=== PATIENT | female | born 1985 | race Caucasian/White ===

== ENCOUNTER → 2017-08-23 11:54 | Day surgery (SDC) | payer OTHER, SELFPAY ==
[2017-08-23] VITALS (11 sets, daily range): BP systolic 89–115; BP diastolic 48–79; PULSE 65–96; RESP 12–16; TEMP 36.5–37.3; O2SAT 99–100; BMI 27.8
--- NOTE | 2017-08-23 | PATH_ITS ---
[facility] Accession Number: [id number] . 01 Material submitted: . GALLBLADDER . 02 Diagnosis: Gallbladder, Cholecystectomy: Chronic cholecystitis with cholelithiasis. One benign cystic duct lymph node identified. MRV/08/28/2017 . 02 Electronically signed: . Jalyn Srinivasan MD, Pathologist NPI- [id number] . 01 Gross description: . Received in formalin, labeled 1) gallbladder, is an intact gallbladder (length-9.8 cm, diameter-2.5 cm) with farmer-blue smooth shiny serosa and a patent cystic duct. A possible lymph node (0.4 x 0.3 x 0.2 cm) is identified. The lumen contains multiple gomez-orange solid firm multifaceted calculi (3.5 x 3.0 x 1.0 cm), each approximately the same size-0.6 x 0.5 x 0.5 cm with a dark prema cut surface. The mucosa is green smooth and flat. The wall is up to 0.1 cm thick. No nodules, masses or lesions are identified. Section code: (A1) cystic duct resection margin and two serial sections from the body; (A2) two longitudinal sections from the fundus; (A3) one intact lymph node. ([id number]) /MRV . 02 Pathologist provided ICD-10: K80.60 . 02 CPT . 185631 Performed at: 01 [facility] [address] [id number] MD Manoj Long MD Phone: [phone] Performed at: 02 [facility] [place] [address] [place] [id number] MD Caio Haile MD Phone: [phone]
--- NOTE | 2017-08-23 12:29 | SUR.PREOP ---
Patient gowned and resting in bed. Denies complaints at this time. call light within reach, bed locked and low, at bedside. awaiting or team.
[2017-08-23] MEDS: LACTATED RINGERS 1,000 ML 50 ML IV (12:59)
[2017-08-23] MEDS: CEFAZOLIN 2 GM/100 ML FROZ.PIGGY IV (12:59)
--- NOTE | 2017-08-23 13:01 | PM.PREOP ---
Pre-operative Note Interval Note Pre-op Check: Yes History & Physical Reviewed, Yes Exam Performed and Yes No Changes
--- NOTE | 2017-08-23 13:03 | SUR.OPER ---
Supine on padded OR bed, head on pillow, safety belt at thigh, left arm padded and tucked at side. Right arm secured on padded arm oard <90 degrees abduction. Legs uncrossed. Padded footboard in place. Tape over blanket to secure lower legs.
[2017-08-23] MEDS: LIDOCAINE 1% INJ (13:13)
[2017-08-23] MEDS: EPI INJ (13:13)
[2017-08-23] MEDS: BUPIVACAINE 0.5% (PF) 30 ML VIAL INJ (13:14)
--- NOTE | 2017-08-23 14:12 | P.OP_ITS ---
Operative Date/Time/Diagnoses - Date of procedure: 08/23/17 Time of procedure: 14:06 Pre-op diagnosis: Symptomatic cholelithiasis Post-op diagnosis: same Procedure & Clinicians Procedure: Laparoscopic cholecystectomy Same procedure as scheduled: Yes Surgeon: Helen Ledemsa Anesthesia Type: General ([place]) and Local Operative Notes Findings: Normal appearing gallbladder with numerous small palpable stones Closure Type: primary Specimen(s): other (Gallbladder in formalin to pathology) Estimated Blood Loss (mL): 10 Blood products transfused: none Procedure in detail: After obtaining informed consent, the patient was brought to the operating room and placed in the supine position on the operating table. Following successful induction of general endotracheal anesthesia, appropriate padding of all bony prominences, and placement of appropriate monitors, the abdomen was prepped and draped in a standard surgical fashion. A timeout was held per ALOAP protocol. Following infiltration with local anesthetic to create a field block, an incision was created superior to the umbilicus and carried down through the skin and subcutaneous tissue to reveal the fascia below. 2-0 Vicryl retention sutures are placed on either side of the midline and the abdomen was entered under direct vision using a 15 blade scalpel. A 10 mm blunt trocar was placed in the abdominal cavity and it was insufflated to 15 mm of Hg pressure. The patient was placed in reverse Trendelenburg position with the left side rotated toward the floor. A second 5 mm trocar was placed in the midepigastrium and 2 more in the right upper quadrant, again after infiltration with local anesthetic and under direct vision with the camera. The gallbladder was grasped in the fundus and elevated up over the liver. This revealed the cholecysto-hepatoduodenal ligament. The cystic duct and artery were carefully identified with gentle dissection. As we were able to clearly see the structures as well as the junction with the common duct; we elected not to perform a cholangiogram. 3 clips were placed proximally on the cystic duct and one distally. The duct was divided between these clips. 2 clips were placed proximally on the cystic artery and one distally. The artery was divided between these clips. The gallbladder was then liberated from its bed in the liver using Bovie cautery. It was placed in an Endoscopic bag and removed via the umbilical port. The camera was returned to the abdominal cavity and the operative site examined carefully. Hemostasis was obtained with cautery. The abdomen was irrigated copiously with warm saline solution and then aspirated free of all particulate matter and fluid. Trochars were then removed under direct vision and the abdomen desufflated by giving the patient a Valsalva maneuver. The umbilical incision was closed with interrupted Vicryl suture and Monocryl sutures were placed in the skin. The remaining skin incisions were closed with Monocryl suture. All sponge, needle, and instrument counts were correct at the conclusion of the case. The patient was allowed to awaken from anesthesia without difficulty and taken to the post anesthesia care unit in good condition. Complications: none Condition: stable Disposition: PACU Plan for aftercare: 1. Discharged to home 2. Follow up with me in 2 weeks
[2017-08-23] MEDS: fentaNYL 100 MCG/2 ML VIAL 50 MCG IV ×2 (14:19→14:34)
[2017-08-23] MEDS: HYDROCODONE/ACET 5/325 TABLET 1 TAB PO (14:52)
[2017-08-23] MEDS: diphenhydrAMINE 50 MG/ML VIAL 25 MG IV (14:54)
== END | disposition home or self-care (01) ==
PROVIDERS: Visit Provider Surgery
PROC: 0FT44ZZ Resection of Gallbladder, Percutaneous Endoscopic Approach (ICD-10-PCS; CPT 47562; principal; 2017-08-23 14:15)
DX: K80.20 Calculus of gallbladder without cholecystitis without obstruction (principal)
CPT/HCPCS: 47562; 88304; J0690; J1100; J1200; J2405; J2704; J3010